=== PATIENT | female | born 1975 ===

== ENCOUNTER 2024-02-22 12:19 | Day surgery (SDC) | payer BC ==
--- NOTE | 2024-02-22 11:38 | HP ---
PROCEDURE DATE: 02/22/2024 HISTORY OF PRESENT ILLNESS: No prior colonoscopy. No bloody stools. No change in bowel habits. No new pain. Family history negative for colon cancer. PAST MEDICAL HISTORY: The patient has had some history of severe headaches from migraines in the past. CURRENT MEDICATIONS: Amitriptyline, Isibloom. ALLERGIES: NKDA. PAST SURGICAL HISTORY: Had bilateral tubal in the past. Had gastric bypass in the past. Had uterine thermal ablation in the past. FAMILY HISTORY: Negative for colon cancer. Heart disease, diabetes, pulmonary fibrosis. SOCIAL HISTORY: No smoking. Occasional alcohol use. REVIEW OF SYSTEMS: 12 systems reviewed. No chest pain or palpitations. Other systems pertinent for as noted above and per admission assessment. PHYSICAL EXAMINATION: Height 5' 4", BMI 31.75. GENERAL: No acute distress. HEENT: Sclerae nonicteric. NECK: No JVD. CHEST: Equal excursion. Nonlabored breathing. CVS: Regular rate and rhythm. ABDOMEN: Soft. EXTREMITIES: No significant edema. NEURO: Alert and oriented, moving extremities symmetrically. PSYCH: Appropriate mood and affect. SKIN: Dry. RECTAL: Deferred until time of endoscopy exam. IMPRESSION: IN NEED OF SCREENING COLONOSCOPY. FEEL SHE IS A CANDIDATE. Risks and benefits explained in detail, but not limited to, bleeding; infection; risk of bowel prep, but not limited to; risk of incomplete exam possibly requiring barium enema; general risk of anesthesia or sedation. Consent was obtained. Will proceed with colonoscopy as an outpatient. Otherwise, continue medication for headaches.
[2024-02-22] MEDS: Lactated Ringers 1,000 ML IV SCH (12:52)
[2024-02-22] MEDS ORDERED: Lactated Ringers 1,000 ML IV ONE (14:18)
[2024-02-22] MEDS ORDERED: Versed 2 MG/2 ML Injection ONE (14:47)
[2024-02-22] MEDS ORDERED: DIPRIVAN 200 MG/20 ML IV ONE ×2 (14:47→14:58)
[2024-02-22 15:53] VITALS: BP 146/82; PULSE 55; RESP 18; TEMP 97.5; O2SAT 100
--- NOTE | 2024-02-23 08:04 | OP ---
SURGERY DATE/TIME: 02/22/2024 [id number] PREOPERATIVE DIAGNOSIS: Need for screening colonoscopy. POSTOPERATIVE DIAGNOSES: 1) Very tortuous colon. 2) Fair bowel prep, slightly limited. 3) ASA class 2. 4) Small polyp sigmoid colon. 5) Small raised lesion sigmoid colon versus early polyp. PROCEDURES: 1) Colonoscopy to cecum. 2) Hot biopsy small, vague, raised lesion versus early polyp sigmoid colon. 3) Hot biopsy polypectomy small early polyps versus hyperplastic in sigmoid colon x2. SURGEON: Alex Dorsey MD. EXCHANGE ARCHITECT: Choco Henning, Medical Student 3. ESTIMATED BLOOD LOSS: Minimal. INDICATIONS: As above. Consent was obtained. DESCRIPTION OF PROCEDURE AND FINDINGS: Patient taken to the endoscopy room. MAC anesthesia induced after official time-out for planned procedure. Digital rectal exam did not reveal any rectal masses. Videocolonoscope was inserted and passed up through the tortuous sigmoid, descending, transverse, ascending colon, and required 2 different staff members obtaining external compression and eventually placed the patient on her back. Finally, I was able to reach the cecum. Appendiceal orifice and valve were well visualized and photo documented. Prep overall was fair, on the limited side with moderate amount of liquidy, a little bit of semi-solid stool, suctioned and irrigated as clear as possible. This was a very limited exam for small lesions. Because of the prep quality, if the small polyps were benign, I would recommend probably followup colonoscopy in 5 years pending final path. The scope was slowly and carefully withdrawn over the next 9 minutes, stopping and did a biopsy of small, vague, raised lesions in the sigmoid colon, whether it was an early polyp versus hyperplasia of mucosa. Biopsy was accomplished. Good hemostasis noted. Otherwise, there were 2 small early polyps, hyperplastic lesion removed with hot biopsy polypectomy sigmoid colon. Patient tolerated the procedure well. There were no immediate complications. Findings were discussed with the family out in the waiting area.
== END 2024-02-22 15:57 | disposition home or self-care (01) ==
LOC: SDC 12:19
PROVIDERS: ATTEND Surgery
DX: Z12.11 Encounter for screening for malignant neoplasm of colon (principal); D12.5 Benign neoplasm of sigmoid colon
CPT/HCPCS: J2250; J2704